=== PATIENT | female | born 1975 | race Caucasian/White ===

== ENCOUNTER → 2018-02-28 | Outpatient (CLI) | payer MEDICAID ==
--- NOTE | 2018-03-03 09:54 | MM ---
Reason for exam: screening (asymptomatic). Last mammogram was performed 1 year ago. History: Took hormonal contraceptives for 4 years. MG 3D Screening Mammo W/Cad Bilateral CC and MLO view(s) were taken. Prior study comparison: February 24, 2017, bilateral MG 3d screening mammo w/cad. February 24, 2016, bilateral MG 3d screening mammo w/cad. The breast tissue is heterogeneously dense. This may lower the sensitivity of mammography. No suspicious abnormality. No significant changes when compared with prior studies. ASSESSMENT: Negative, BI-RAD 1 RECOMMENDATION: Routine screening mammogram of both breasts in 1 year.
== END | disposition home or self-care (01) ==
LOC: RADMAMWWP 11:47
PROVIDERS: ATTEND Obstetrics & Gynecology
DX: Z12.31 Encounter for screening mammogram for malignant neoplasm of breast (principal)
CPT/HCPCS: 77063; 77067

== ENCOUNTER → 2019-03-02 | Outpatient (CLI) | payer MEDICAID ==
--- NOTE | 2019-03-03 13:50 | MM ---
Reason for exam: screening (asymptomatic). Last mammogram was performed 1 year ago. History: Took hormonal contraceptives for 4 years. Physical Findings: A clinical breast exam by your physician is recommended on an annual basis and results should be correlated with mammographic findings. MG 3D Screening Mammo W/Cad Bilateral CC and MLO view(s) were taken. Prior study comparison: February 28, 2018, bilateral MG 3d screening mammo w/cad. February 24, 2017, bilateral MG 3d screening mammo w/cad. The breast tissue is heterogeneously dense. This may lower the sensitivity of mammography. No significant changes when compared with prior studies. ASSESSMENT: Benign, BI-RAD 2 RECOMMENDATION: Routine screening mammogram of both breasts in 1 year.
== END | disposition home or self-care (01) ==
LOC: RADMAMWWP 12:33
PROVIDERS: ATTEND Obstetrics & Gynecology
DX: Z12.31 Encounter for screening mammogram for malignant neoplasm of breast (principal)
CPT/HCPCS: 77063; 77067

== ENCOUNTER → 2019-04-17 | Outpatient (CLI) | payer MEDICAID ==
[2019-04-17 17:27] LABS: T4, Free (Free Thyroxine) 1.1 ng/dL (0.80-1.80)
[2019-04-17 17:28] LABS: Estradiol 105.6 pg/mL; Follicle Stimulating Hormone 2.4 mIU/mL
== END | disposition home or self-care (01) ==
LOC: LABWHC1 10:03
PROVIDERS: ATTEND Obstetrics & Gynecology
DX: N93.8 Other specified abnormal uterine and vaginal bleeding (principal); Z13.29 Encounter for screening for other suspected endocrine disorder
CPT/HCPCS: 36415; 82670; 83001; 84439; 84443

== ENCOUNTER → 2019-04-28 | Outpatient (CLI) | payer MEDICAID ==
--- NOTE | 2019-04-28 12:57 | US ---
EXAMINATION TYPE: US pelvis complete transvag DATE OF EXAM: 04/28/2019 COMPARISON: us 09/22/2011 CLINICAL HISTORY: N93.8 dysfunctional uterine bleeding. Patient had ablation 6 years ago, no period s reuben. Bleeding now TECHNIQUE: . Transabdominal sonographic images of the pelvis were acquired. Transvaginal sonographi c images were medically necessary to better assess the following anatomy: Endometrium Date of LMP: 6 years ago EXAM MEASUREMENTS: Uterus: 9.3 x 4.0 x 4.4 cm Endometrial Stripe: 0.3 cm Right Ovary: 3.2 x 2.1 x 1.6 cm Left Ovary: 2.4 x 1.7 x 1.1 cm 1. Uterus: Anteverted Hypoechoic area measuring 4.2 x 3.1 x 4.0 cm, probable fibroid pushing into endometrium 2. Endometrium: see above. measuring normal 3. Right Ovary: wnl 4. Left Ovary: wnl Spectral, color and waveform doppler imaging shows good arterial and venous flow within the ovaries ; . 5. Bilateral Adnexa: wnl 6. Posterior cul-de-sac: wnl There is 4.2 cm large hypoechoic fibroid posterior uterine myometrium slightly bulging the margin of the uterus extending centrally to level of the endometrial stripe. This appears more isoechoic on tra nsvaginal investigation. Small moderate fluid is seen in the endometrial canal at level of the cervix . Endometrial stripe is not thickened. IMPRESSION: Interval growth in posterior intrauterine fibroid now measuring 4.2 cm in size.
== END | disposition home or self-care (01) ==
LOC: RADUSWWP 12:04
PROVIDERS: ATTEND Obstetrics & Gynecology
DX: N93.8 Other specified abnormal uterine and vaginal bleeding (principal)
CPT/HCPCS: 76830; 76856

== ENCOUNTER → 2019-12-05 | Day surgery (SDC) | payer MEDICAID ==
[2019-11-30 14:11] VITALS: BMI 29.4
[~2019-12-05] MED LIST: LACTATED RINGERS 1,000 ML IV SCH; LIDOCAINE 1% (10MG/ML) FOR IV START INTRADERMA ONE; LIDOCAINE 1% INJ 10MG/ML (20 ML MDV) ONE; PROPOFOL 10 MG/ML 20 ML VIAL IV ONE
[2019-12-05 09:22] VITALS: RESP 16; TEMP 98.2
[2019-12-05 09:39] LABS: Glucose,Whole Blood 112 mg/dL (75-99)
--- NOTE | 2019-12-05 10:27 | P.GSHP ---
History of Present Illness H&P Date: 12/05/19 Chief Complaint: GERD 44-year-old female here with complaints of GERD. Patient states she is being worked up for chronic laryngitis. She has been on antiacids for the last few months without improvement. No dysphagia. Only rare episodes of heartburn. Past Medical History Additional Past Medical History / Comment(s): recent issues with strep, tonsils, and thrush, occasional vertigo History of Any Multi-Drug Resistant Organisms: None Reported Past Surgical History: Orthopedic Surgery, Uterine Ablation Additional Past Surgical History / Comment(s): LEEP, ganglion cyst removed from hand Past Anesthesia/Blood Transfusion Reactions: No Reported Reaction Smoking Status: Former smoker - Past Family History Father Family Medical History: Cancer Additional Family Medical History / Comment(s): kidney Medications and Allergies Home Medications Medication Instructions Recorded Confirmed Type Meclizine [Antivert] 25 mg PO TID PRN #15 tab 12/27/17 12/05/19 Rx Montelukast Sodium [Singulair] 10 mg PO HS 12/27/17 12/05/19 History Cetirizine HCl [Zyrtec] 10 mg PO DAILY 11/30/19 12/05/19 History Fluticasone 150 mg PO DAILY 11/30/19 12/05/19 History Fluticasone Nasal [place] [Flonase 2 spr EA NOSTRIL DAILY 11/30/19 12/05/19 History Nasal Norman] Multivitamins, Thera [Multivitamin 1 tab PO DAILY 11/30/19 12/05/19 History (formulary)] Omeprazole 40 mg PO DAILY 11/30/19 12/05/19 History Varenicline Tartrate [Chantix 1 mg PO BID 11/30/19 12/05/19 History Continuing Pack] Allergies Allergy/AdvReac Type Severity Reaction Status Date / Time Penicillins Allergy Unknown Verified 12/05/19 09:19 Surgical - Exam Vital Signs Temp Pulse Resp BP Pulse Ox 98.2 F 93 16 149/88 97 12/05/19 09:15 12/05/19 09:15 12/05/19 09:15 12/05/19 09:15 12/05/19 09:15 Physical exam: General: Well-developed, well-nourished HEENT: Normocephalic, sclerae nonicteric Abdomen: Nontender, nondistended Extremities: No edema Neuro: Alert and oriented Results - Labs Abnormal Lab Results - Last 24 Hours (Table) 12/05/19 Range/Units 09:30 POC Glucose (mg/dL) 112 H (75-99) mg/dL Assessment and Plan (1) GERD (gastroesophageal reflux disease) Narrative/Plan: Will proceed with upper endoscopy at this time Current Visit: Yes Status: Acute Code(s): K21.9 - GASTRO-ESOPHAGEAL REFLUX DISEASE WITHOUT ESOPHAGITIS SNOMED Code(s): 056139244
--- NOTE | 2019-12-05 10:32 | P.PCN ---
Date of Procedure: 12/05/19 Procedure(s) Performed: Preoperative Dx: GERD Postoperative Dx: Mild gastritis Procedure: EGD with Bx Anesthesia: Sedation Endoscopist: Dr. Stubbs Specimens: Antrum Endoscopic Procedure: The patient was on the endoscopy table in the left decubitus position. The Olympus gastroscope was inserted into the oropharynx and passed under direct visualization to the region of the third portion of the duodenum. From that point the scope was slowly withdrawn inspecting all surfaces carefully. There were no neoplastic inflammatory or polypoid lesions throughout the duodenum. The pylorus was widely patent. The stomach was carefully inspected. There was mild gastritis present. A biopsy of the antrum took place to rule out H. pylori. Retroflexion revealed a normal hiatus. The esophagus was then carefully examined. There were no neoplastic inflammatory or polypoid lesions throughout the visualized esophagus. The patient was then taken to the recovery room in stable condition per anesthesia guidelines. Recommendations: No clinical evidence of reflux on endoscopy. No hiatal hernia seen. Await biopsy results. Continue antiacid therapy.
[2019-12-05 10:53] VITALS: BP 141/98; PULSE 77
== END ==
LOC: ORWHC2ENDO 08:58
PROVIDERS: ATTEND Surgery
DX: K29.50 Unspecified chronic gastritis without bleeding (principal); J37.0 Chronic laryngitis; R42 Dizziness and giddiness; Z86.19 Personal history of other infectious and parasitic diseases; Z98.890 Other specified postprocedural states; Z87.891 Personal history of nicotine dependence; K21.9 Gastro-esophageal reflux disease without esophagitis; Z79.899 Other long term (current) drug therapy; Z88.0 Allergy status to penicillin
CPT/HCPCS: 81025; 88305; 43239; J2001; J2704

== ENCOUNTER → 2020-01-26 | Outpatient (CLI) | payer MEDICAID | END | disposition home or self-care (01) | LOC: LABWHC1 11:08 | PROVIDERS: ATTEND Nurse Practitioner Family | DX: J30.89 Other allergic rhinitis (principal) | CPT/HCPCS: 36415 ==

== ENCOUNTER → 2020-04-05 | Outpatient (CLI) | payer MEDICAID ==
--- NOTE | 2020-04-09 08:42 | MM ---
Reason for exam: screening (asymptomatic). Last mammogram was performed 1 year and 1 month ago. History: Took hormonal contraceptives for 4 years. Physical Findings: A clinical breast exam by your physician is recommended on an annual basis and results should be correlated with mammographic findings. MG 3D Screening Mammo W/Cad Bilateral CC and MLO view(s) were taken. Prior study comparison: March 02, 2019, bilateral MG 3d screening mammo w/cad. February 28, 2018, bilateral MG 3d screening mammo w/cad. The breast tissue is heterogeneously dense. This may lower the sensitivity of mammography. There is chronic nodularity bilaterally. New nodular asymmetric density central lateral right CC view incompletely disperses on 3D. ASSESSMENT: Incomplete: need additional imaging evaluation, BI-RAD 0 RECOMMENDATION: Special view mammogram of the right breast. (3D) If lesion persists on supplemental views, image directed ultrasound is recommended. [facility] will attempt to contact patient to return for supplemental views and ultrasound if indicated.
== END | disposition home or self-care (01) ==
LOC: RADMAMWWP 15:22
PROVIDERS: ATTEND Obstetrics & Gynecology
DX: Z12.31 Encounter for screening mammogram for malignant neoplasm of breast (principal)
CPT/HCPCS: 77063; 77067

== ENCOUNTER → 2020-04-18 | Outpatient (CLI) | payer MEDICAID ==
[2020-04-18 22:32] LABS: T4, Free (Free Thyroxine) 1.1 ng/dL (0.80-1.80)
== END | disposition home or self-care (01) ==
LOC: LABWHC1 11:46
PROVIDERS: ATTEND Obstetrics & Gynecology
DX: Z13.29 Encounter for screening for other suspected endocrine disorder (principal)
CPT/HCPCS: 36415; 84439; 84443

== ENCOUNTER → 2020-04-22 | Outpatient (CLI) | payer MEDICAID ==
--- NOTE | 2020-04-22 17:43 | US ---
EXAMINATION TYPE: US pelvic complete DATE OF EXAM: 04/22/2020 COMPARISON: Previous exam 04/28/2019 CLINICAL HISTORY: D25.9 Known uterine leiomyoma. assess fibroid TECHNIQUE: TA. Transabdominal sonographic images of the pelvis were acquired. Date of LMP: ablation EXAM MEASUREMENTS: Uterus: 9.7 x 3.7 x 4.7 cm Endometrial Stripe: not seen Right Ovary: 3.2 x 2.0 x 2.0 cm Left Ovary: not seen 1. Uterus: Anteverted 3.6 x 4.3 x 3.1cm posterior fundal fibroid measured previously approximately 4.2 x 3.1 x 4 cm 2. Endometrium: unable to discern due to ablation and fibroid 3. Right Ovary: wnl 4. Left Ovary: not seen due to bowel gas 5. Bilateral Adnexa: wnl 6. Posterior cul-de-sac: wnl IMPRESSION: Hypoechoic focus described on prior report shows essentially stable to slightly decreased size in appearance
== END | disposition home or self-care (01) ==
LOC: RADUSWWP 16:13
PROVIDERS: ATTEND Obstetrics & Gynecology
DX: R93.89 Abnormal findings on diagnostic imaging of other specified body structures (principal); D25.9 Leiomyoma of uterus, unspecified
CPT/HCPCS: 76856

== ENCOUNTER → 2020-04-30 | Outpatient (CLI) | payer MEDICAID ==
--- NOTE | 2020-04-30 11:29 | MM ---
Reason for exam: additional evaluation requested from abnormal screening. Last mammogram was performed 1 month ago. History: Took hormonal contraceptives for 4 years. Physical Findings: Nurse did not find any significant physical abnormalities on exam. MG 3D Work Up W/Cad RT Spot compression CC, spot compression CCRM, and LM view(s) were taken of the right breast. Prior study comparison: April 05, 2020, bilateral MG 3d screening mammo w/cad. March 02, 2019, bilateral MG 3d screening mammo w/cad. The breast tissue is heterogeneously dense. This may lower the sensitivity of mammography. There is no discrete abnormality including area of concern. These results were verbally communicated with the patient and result sheet given to the patient on 04/30/20. ASSESSMENT: Benign, BI-RAD 2 RECOMMENDATION: Return to routine screening mammogram schedule for both breasts.
== END | disposition home or self-care (01) ==
LOC: RADMAMWWP 10:04
PROVIDERS: ATTEND Obstetrics & Gynecology
DX: R92.8 Other abnormal and inconclusive findings on diagnostic imaging of breast (principal)
CPT/HCPCS: 77061; 77065

== ENCOUNTER → 2021-05-01 | Outpatient (CLI) | payer MEDICAID ==
--- NOTE | 2021-05-05 11:43 | MM ---
Reason for exam: screening (asymptomatic). Last mammogram was performed 1 year ago. History: Took hormonal contraceptives for 4 years. Physical Findings: A clinical breast exam by your physician is recommended on an annual basis and results should be correlated with mammographic findings. MG 3D Screening Mammo W/Cad Bilateral CC and MLO view(s) were taken. Prior study comparison: April 30, 2020, right breast MG 3d work up w/cad RT. April 05, 2020, bilateral MG 3d screening mammo w/cad. The breast tissue is heterogeneously dense. This may lower the sensitivity of mammography. There is chronic nodularity bilaterally. No significant changes when compared with prior studies. ASSESSMENT: Benign, BI-RAD 2 RECOMMENDATION: Routine screening mammogram of both breasts in 1 year.
== END | disposition home or self-care (01) ==
LOC: RADMAMWWP 10:42
PROVIDERS: ATTEND Obstetrics & Gynecology
DX: Z12.31 Encounter for screening mammogram for malignant neoplasm of breast (principal)
CPT/HCPCS: 77063; 77067

== ENCOUNTER 2022-03-03 09:10 | Day surgery (SDC) | payer MEDICAID ==
[~2022-03-03 09:10] MED LIST changes: -LIDOCAINE 1% (10MG/ML) FOR IV START INTRADERMA ONE; +LIDOCAINE 1% (10MG/ML) FOR IV START INTRADERMA PRN; -LIDOCAINE 1% INJ 10MG/ML (20 ML MDV) ONE; -PROPOFOL 10 MG/ML 20 ML VIAL IV ONE
[2022-03-03] MEDS ORDERED: LACTATED RINGERS 1,000 ML IV ONE (09:50)
[2022-03-03 10:02] VITALS: RESP 16; TEMP 97.2
[2022-03-03] MEDS ORDERED: PROPOFOL 10 MG/ML 20 ML VIAL IV ONE (10:29)
--- NOTE | 2022-03-03 10:32 | P.GSHP ---
History of Present Illness H&P Date: 03/03/22 Chief Complaint: Colon cancer screening 47-year-old female here today for colonoscopy. She has not had 1 previously. No bowel complaints. No family history of colon cancer. Past Medical History Past Medical History: GERD/Reflux Additional Past Medical History / Comment(s): seasonal allergies History of Any Multi-Drug Resistant Organisms: None Reported Past Surgical History: Orthopedic Surgery, Uterine Ablation Additional Past Surgical History / Comment(s): LEEP, ganglion cyst removed from hand, EGD Past Anesthesia/Blood Transfusion Reactions: No Reported Reaction Smoking Status: Current every day smoker - Past Family History Father Family Medical History: Cancer Additional Family Medical History / Comment(s): kidney Medications and Allergies Home Medications Medication Instructions Recorded Confirmed Type Montelukast Sodium [Singulair] 10 mg PO HS 12/27/17 03/03/22 History Cetirizine HCl [Zyrtec] 10 mg PO DAILY 11/30/19 03/03/22 History Fluticasone Nasal [place] [Flonase 2 spr EA NOSTRIL DAILY PRN 11/30/19 03/03/22 History Nasal [place]onda] Multivitamins, Thera [Multivitamin 1 tab PO DAILY 11/30/19 03/03/22 History (formulary)] Omeprazole 40 mg PO DAILY PRN 11/30/19 03/03/22 History Azelastine HCl [Astepro] 1 spray NASAL BID PRN 02/26/22 03/03/22 History Citalopram Hydrobromide 20 mg PO HS 02/26/22 03/03/22 History [Citalopram HBr] Allergies Allergy/AdvReac Type Severity Reaction Status Date / Time Penicillins Allergy family hx. Verified 03/03/22 09:44 of severe allergy Surgical - Exam Vital Signs Temp Pulse Resp BP Pulse Ox 97.2 F L 78 16 152/91 96 03/03/22 09:40 03/03/22 09:40 03/03/22 09:40 03/03/22 09:40 03/03/22 09:40 Physical exam: General: Well-developed, well-nourished HEENT: Normocephalic, sclerae nonicteric Abdomen: Nontender, nondistended Extremities: No edema Neuro: Alert and oriented Assessment and Plan (1) Colon cancer screening Narrative/Plan: Will proceed with colonoscopy at this time. Current Visit: Yes Status: Acute Code(s): Z12.11 - ENCOUNTER FOR SCREENING FOR MALIGNANT NEOPLASM OF COLON SNOMED Code(s): 500689470
--- NOTE | 2022-03-03 10:44 | P.PCN ---
Date of Procedure: 03/03/22 Procedure(s) Performed: PREOPERATIVE DIAGNOSIS: Colon cancer screening POSTOPERATIVE DIAGNOSIS: Normal exam PROCEDURE: Colonoscopy ANESTHESIA: MAC SURGEON: Itz Stubbs M.D. SPECIMENS: None ENDOSCOPIC PROCEDURE: The patient was placed on the endoscopy table in the left decubitus position. The Olympus colonoscope was inserted into the anus and passed under direct visualization to the base of the cecum. The appendiceal orifice was visualized. From that point the scope was slowly withdrawn inspecti ng all surfaces carefully. There were no neoplastic inflammatory or polypoid lesions throughout the cecum, ascending, transverse, descending, sigmoid and rectum. There was no visible diverticulosis noted. Digital rectal examination was normal. The patient was taken to the recovery room in stable condition per anesthesia guidelines. RECOMMENDATIONS: Resume diet. Repeat colonoscopy 10 years.
[2022-03-03 11:13] VITALS: BP 146/96; PULSE 78
== END 2022-03-03 11:22 | disposition home or self-care (01) ==
LOC: ORWHC2ENDO 09:10
PROVIDERS: ATTEND Surgery
DX: Z12.11 Encounter for screening for malignant neoplasm of colon (principal); K21.9 Gastro-esophageal reflux disease without esophagitis; F17.200 Nicotine dependence, unspecified, uncomplicated; R42 Dizziness and giddiness; Z80.51 Family history of malignant neoplasm of kidney; Z79.899 Other long term (current) drug therapy; Z88.0 Allergy status to penicillin; Z80.0 Family history of malignant neoplasm of digestive organs; Z98.51 Tubal ligation status
CPT/HCPCS: 81025; 45378; J2704

== ENCOUNTER → 2022-05-04 | Outpatient (CLI) | payer MEDICAID ==
--- NOTE | 2022-05-04 15:27 | MM ---
Reason for Exam: Screening (asymptomatic). Last mammogram was performed 1 year(s) and 1 month(s) ago. Patient History: Menarche at age 12. First Full-Term at age 18. Patient used Hormonal Contraceptives for 4 years. Risk Values: Jody 5 year model risk: 0.6%. NCI Lifetime model risk: 6.8%. Prior Study Comparison: 04/05/2020 Bilateral Screening Mammogram, [facility]. 04/30/2020 Right Diagnostic Mammogram, [facility]. 05/01/2021 Bilateral Screening Mammogram, [facility]. Tissue Density: The breast tissue is heterogeneously dense. This may lower the sensitivity of mammography. Findings: Analyzed By CAD. Stable 5 mm rounded circumscribed mass in the anterior right breast from several prior mammograms. There is no suspicious group of microcalcifications or new suspicious mass in either breast. Overall Assessment: Negative, BI-RAD 1 Management: Screening Mammogram of both breasts in 1 year. A clinical breast exam by your physician is recommended on an annual basis and results should be correlated with mammographic findings. Electronically signed and approved by: Eulalio Pineda M.D.
== END | disposition home or self-care (01) ==
LOC: RADMAMWWP 10:37
PROVIDERS: ATTEND Obstetrics & Gynecology
DX: Z12.31 Encounter for screening mammogram for malignant neoplasm of breast (principal)
CPT/HCPCS: 77063; 77067

== ENCOUNTER → 2023-02-03 | Outpatient (CLI) | payer MEDICAID ==
--- NOTE | 2023-02-03 12:08 | MR ---
EXAMINATION TYPE: MR lumbar spine wo con DATE OF EXAM: 02/03/2023 COMPARISON: Lumbosacral spine radiograph 06/29/2014 HISTORY: Back (Lower Sacral) Pain that radiates in hips, mostly left side x8 months TECHNIQUE: Multiplanar, multisequence images of the lumbar spine were acquired without IV contrast. FINDINGS: Lumbar segments are intact. No paraspinal masses are identified. Conus medullaris has a normal appe arance. Diffusely heterogenous bone marrow signal. T11-T12: Small left central disc protrusion superimposed upon a broad-based disc bulge with mild effa cement of anterior thecal sac. The neuroforamina are patent bilaterally. T12-L1: Broad-based disc bulge with mild effacement of the anterior thecal sac. The neuroforamina are patent bilaterally. L1-L2: No herniation, protrusion or disc bulging. No canal stenosis is present. Foramina are patent bilaterally. L2-L3: No herniation, protrusion or disc bulging. No canal stenosis is present. Foramina are patent bilaterally. L3-L4: Broad-based disc bulge without significant effacement of the anterior thecal sac. Bilateral fa cet arthropathy. No significant neural foraminal stenosis. L4-L5: Broad-based disc bulge with ligamentum flavum buckling and bilateral facet arthropathy contrib zulma to mild central canal stenosis. Mild bilateral neural foraminal stenosis. L5-S1: Broad-based disc bulge with bilateral facet arthropathy contributes to mild central canal sten osis. The neural foramina are patent bilaterally. Fibrotic changes of the uterus suspected with lobulated appearance and T2 hyperintense foci. IMPRESSION: 1. Small T11-T12 disc herniation superimposed upon a broad-based disc bulge with mild central canal s tenosis. 2. Multilevel degenerative disc disease and facet arthropathy. This is most pronounced at T12-L1 and L4-L5.
== END | disposition home or self-care (01) ==
LOC: RADMRIMAIN 10:13
PROVIDERS: ATTEND Physical Medicine & Rehabilitation
DX: M51.16 Intervertebral disc disorders with radiculopathy, lumbar region (principal); M47.26 Other spondylosis with radiculopathy, lumbar region; M51.14 Intervertebral disc disorders with radiculopathy, thoracic region; M48.07 Spinal stenosis, lumbosacral region; M99.73 Connective tissue and disc stenosis of intervertebral foramina of lumbar region; M43.16 Spondylolisthesis, lumbar region
CPT/HCPCS: 72148

== ENCOUNTER → 2023-05-13 | Outpatient (CLI) | payer MEDICAID ==
--- NOTE | 2023-05-15 15:54 | MM ---
Reason for Exam: Screening (asymptomatic). Last screening mammogram was performed 12 month(s) ago. Patient History: Menarche at age 12. First Full-Term at age 18. Patient used Hormonal Contraceptives for 4 years. Risk Values: Jody 5 year model risk: 0.7%. NCI Lifetime model risk: 6.7%. Prior Study Comparison: 04/30/2020 Right Diagnostic Mammogram, [facility]. 05/01/2021 Bilateral Screening Mammogram, [facility]. 05/04/2022 Bilateral MG 3D screening mammo w/cad, [facility]. Tissue Density: The breast tissue is heterogeneously dense. This may lower the sensitivity of mammography. Findings: Analyzed By CAD. The pattern is symmetrical and stable. No significant interval changes. Chronic nodularity is within the right breast. No suspicious groups of microcalcifications, spiculated or lobular masses, architectural distortion or other secondary signs of malignancy are mammographically apparent. Overall Assessment: Benign, BI-RAD 2 Management: Screening Mammogram of both breasts in 1 year. A negative mammogram report should not preclude additional follow up of suspicious palpable abnormalities. Patient should continue monthly self breast exam. A clinical breast exam by your physician is recommended on an annual basis and results should be correlated with mammographic findings. Electronically signed and approved by: Brian Estevez D.O. Radiologis
== END | disposition home or self-care (01) ==
LOC: RADMAMWWP 09:29
PROVIDERS: ATTEND Obstetrics & Gynecology
DX: Z12.31 Encounter for screening mammogram for malignant neoplasm of breast (principal)
CPT/HCPCS: 77063; 77067

== ENCOUNTER → 2024-04-12 | Outpatient (CLI) | payer MEDICAID ==
--- NOTE | 2024-04-12 07:35 | MM ---
Reason for Exam: Clinical finding. Last screening mammogram was performed 11 month(s) ago. Indicated Problems: Lump or thickening of the left side for 4 Year(s). Patient History: Menarche at age 12. First Full-Term at age 18. Patient used Hormonal Contraceptives for 4 years. Risk Values: Jody 5 year model risk: 0.7%. NCI Lifetime model risk: 6.6%. Prior Study Comparison: 05/12/2010 Bilateral Screening Mammogram, [facility]. 07/03/2013 Bilateral Diagnostic Mammogram, [facility]. 07/03/2013 Right Diagnostic Ultrasound, [facility]. 01/08/2014 Right Diagnostic Ultrasound, [facility]. 02/20/2015 Bilateral Screening Mammogram, [facility]. 02/24/2016 Bilateral Screening Mammogram, [facility]. 02/24/2017 Bilateral Screening Mammogram, [facility]. 02/28/2018 Bilateral Screening Mammogram, [facility]. 03/02/2019 Bilateral Screening Mammogram, [facility]. 04/05/2020 Bilateral Screening Mammogram, [facility]. 04/30/2020 Right Diagnostic Mammogram, [facility]. 05/01/2021 Bilateral Screening Mammogram, [facility]. 05/04/2022 Bilateral MG 3D screening mammo w/cad, [facility]. 05/13/2023 Bilateral MG 3D screening mammo w/cad, [facility]. Tissue Density: There are scattered areas of fibroglandular density. Findings: Analyzed By CAD. The pattern is symmetrical. No significant interval change. No suspicious mammographic abnormality at the palpable marker anterior left breast. Benign calcifications in the outer mid left breast. No suspicious groups of microcalcifications, spiculated or lobular masses, architectural distortion or other secondary signs of malignancy are mammographically apparent. Overall Assessment: Incomplete: need additional imaging evaluation, BI-RAD 0 Management: Diagnostic Breast Ultrasound of the left breast. A negative mammogram report should not preclude additional follow up of suspicious palpable abnormalities. Patient should continue monthly self breast exam. A clinical breast exam by your physician is recommended on an annual basis and results should be correlated with mammographic findings. Note on Jody scores and lifetime risk: 1. A Jody score greater than 3% is considered moderate risk. If this is the case, consider specialist referral to assess eligibility for a risk reducing agent. 2. If overall lifetime risk for the development of breast cancer is 20% or higher, the patient may qualify for future screening with alternating mammogram and breast MRI. [facility], , 04/12/2024 7:31 AM. Electronically signed and approved by: Brian Estevez D.O. Radiologis
--- NOTE | 2024-04-12 07:59 | USB ---
Reason for Exam: Clinical finding. Patient History: Menarche at age 12. First Full-Term at age 18. Patient used Hormonal Contraceptives for 4 years. Risk Values: Jody 5 year model risk: 0.7%. NCI Lifetime model risk: 6.6%. Technique: Method: Targeted. Prior Study Comparison: 05/01/2021 Bilateral Screening Mammogram, [facility]. 05/04/2022 Bilateral MG 3D screening mammo w/cad, [facility]. 05/13/2023 Bilateral MG 3D screening mammo w/cad, [facility]. Findings: The area of palpable concern of the left breast, the axilla of the left breast and the retroareolar of the left breast were scanned. No discrete solid or cystic masses are identified. There is a vague isoechoic area containing the soft tissues. Short-term follow-up can be performed. Earlier diagnostic workup can be performed for changing clinical findings. Overall Assessment: Probably benign, BI-RAD 3 Management: Diagnostic Breast Ultrasound of the left breast in 3 months. A clinical breast exam by your physician is recommended on an annual basis and results should be correlated with mammographic findings. This exam should not preclude additional follow-up of suspicious palpable abnormalities. Results were given to the patient verbally at the time of exam. [facility], , 04/12/2024 7:47 AM. Electronically signed and approved by: Brian Estevez D.O. Radiologis
== END | disposition home or self-care (01) ==
LOC: RADMAMWWP 06:55
PROVIDERS: ATTEND Obstetrics & Gynecology
DX: N63.20 Unspecified lump in the left breast, unspecified quadrant (principal); R92.323 Mammographic fibroglandular density, bilateral breasts
CPT/HCPCS: 77062; 77066

== ENCOUNTER 2024-06-26 23:34 | Emergency (ER) | payer MEDICAID ==
[2024-06-26 23:40] VITALS: BP 135/92; PULSE 100; RESP 18; TEMP 97.8
--- NOTE | 2024-06-26 23:56 | ED ---
General Adult HPI - General Chief complaint: Wound/Laceration Stated complaint: Cat Scratch on Lip Time Seen by Provider: 06/26/24 23:44 Source: patient Mode of arrival: ambulatory Limitations: no limitations - History of Present Illness Initial comments: 49-year-old female presenting with chief complaint of cat scratch. States that tonight her pet cat scratched her face. She is a small scratch on her nose and on her upper lip. Bleeding is controlled. This is quite superficial. She does not know when her last tetanus shot was. - Related Data Home Medications Medication Instructions Recorded Confirmed Montelukast Sodium [Singulair] 10 mg PO HS 12/27/17 03/03/22 Cetirizine HCl [Zyrtec] 10 mg PO DAILY 11/30/19 03/03/22 Fluticasone Nasal [place] [Flonase 2 spr EA NOSTRIL DAILY PRN 11/30/19 03/03/22 Nasal [place]] Multivitamins, Thera [Multivitamin 1 tab PO DAILY 11/30/19 03/03/22 (formulary)] Omeprazole 40 mg PO DAILY PRN 11/30/19 03/03/22 Azelastine HCl [Astepro] 1 spray NASAL BID PRN 02/26/22 03/03/22 Citalopram Hydrobromide 20 mg PO HS 02/26/22 03/03/22 [Citalopram HBr] Previous Rx's Medication Instructions Recorded Azithromycin [Zithromax Z Pack] 1 tab PO DIRECTED #6 tab 06/26/24 Allergies Allergy/AdvReac Type Severity Reaction Status Date / Time Penicillins Allergy family hx. Verified 06/26/24 23:36 of severe allergy Review of Systems ROS Statement: Those systems with pertinent positive or pertinent negative responses have been documented in the HPI. ROS Other: All systems not noted in ROS Statement are negative. Past Medical History Past Medical History: GERD/Reflux Additional Past Medical History / Comment(s): recent issues with strep, tonsils, and thrush, occasional vertigo History of Any Multi-Drug Resistant Organisms: None Reported Past Surgical History: Orthopedic Surgery, Uterine Ablation Additional Past Surgical History / Comment(s): LEEP, ganglion cyst removed from hand Past Anesthesia/Blood Transfusion Reactions: No Reported Reaction Past Psychological History: Anxiety Smoking Status: Current every day smoker Past Alcohol Use History: Daily Past Drug Use History: None Reported - Past Family History Father Family Medical History: Cancer Additional Family Medical History / Comment(s): kidney General Exam Limitations: no limitations General appearance: alert, in no apparent distress Head exam: Present: normocephalic Expanded Head exam: Present: laceration (Small superficial laceration to the upper lip and nose from cat scratch) Eye exam: Present: normal appearance, EOMI. Absent: periorbital swelling Neck exam: Present: normal inspection. Absent: meningismus Respiratory exam: Absent: respiratory distress Cardiovascular Exam: Present: regular rate Neurological exam: Present: alert, oriented X3 Psychiatric exam: Present: normal affect, normal mood Course Vital Signs 06/26/24 23:36 Temperature 97.8 F Pulse Rate 100 Respiratory 18 Rate Blood Pressure 135/92 O2 Sat by Pulse 98 Oximetry Medical Decision Making - Medical Decision Making Was pt. sent in by a medical professional or institution (, PA, AUTOMOTIVE DRIVABILITY TECHNICIAN, urgent care, hospital, or long-term...) When possible be specific @ -No Did you speak to anyone other than the patient for history (EMS, parent, family, police, friend...)? What history was obtained from this source @ -No Did you review nursing and triage notes (agree or disagree)? Why? @ -I reviewed and agree with nursing and triage notes Were old charts reviewed (outside hosp., previous admission, EMS record, old EKG, old radiological studies, urgent care reports/EKG's, long-term records)? Report findings @ -No old charts were reviewed Differential Diagnosis (chest pain, altered mental status, abdominal pain women, abdominal pain men, vaginal bleeding, weakness, fever, dyspnea, syncope, headache, dizziness, GI bleed, back pain, seizure, CVA, palpatations, mental health, musculoskeletal)? @ -Differential includes EKG interpreted by me (3pts min.). @ -As above X-rays interpreted by me (1pt min.). @ -None done CT interpreted by me (1pt min.). @ -None done U/S interpreted by me (1pt. min.). @ -None done What testing was considered but not performed or refused? (CT, X-rays, U/S, labs)? Why? @ -None What meds were considered but not given or refused? Why? @ -None Did you discuss the management of the patient with other professionals (professionals i.e. , PA, AUTOMOTIVE DRIVABILITY TECHNICIAN, lab, RT, psych nurse, clinical social worker, landing gear mechanic, teacher, security officer, corrections caseworker)? Give summary @ -No Was smoking cessation discussed for >3mins.? @ -No Was critical care preformed (if so, how long)? @ -No Were there social determinants of health that impacted care today? How? (Homelessness, low income, unemployed, alcoholism, drug addiction, transportation, low edu. Level, literacy, decrease access to med. care, correction, rehab)? @ -No Was there de-escalation of care discussed even if they declined (Discuss DNR or withdrawal of care, Hospice)? DNR status @ -No What co-morbidities impacted this encounter? (DM, HTN, Smoking, COPD, CAD, Cancer, CVA, ARF, Chemo, Hep., AIDS, mental health diagnosis, sleep apnea, morbid obesity)? @ -None Was patient admitted / discharged? Hospital course, mention meds given and route, prescriptions, significant lab abnormalities, going to OR and other pertinent info. @ -49-year-old female presenting with chief complaint of cat scratch to the upper lip and nose. These scratches are quite superficial. They are irrigated using normal saline. Tetanus is updated. Patient is started on antibiotics. Educated on wound care and signs of infection. Follow-up with PCP. Report back to ER with any new or worsening symptoms. Discussed return parameters and answered all questions. Patient conveyed verbal understanding and agreed to the plan. I discussed this case in detail with my attending Dr. Desai Undiagnosed new problem with uncertain prognosis? @ -No Drug Therapy requiring intensive monitoring for toxicity (Heparin, Nitro, Insulin, Cardizem)? @ -No Were any procedures done? @ -No Diagnosis/symptom? @ -Cat scratch Acute, or Chronic, or Acute on Chronic? @ -Acute Uncomplicated (without systemic symptoms) or Complicated (systemic symptoms)? @ -Uncomplicated Side effects of treatment? @ -No Exacerbation, Progression, or Severe Exacerbation? @ -No Poses a threat to life or bodily function? How? (Chest pain, [place], [place], pneumonia, PE, COPD, DKA, ARF, appy, cholecystitis, CVA, Diverticulitis, Homicidal, Suicidal, threat to staff... and all critical care pts) @ -Unlikely Disposition Clinical Impression: Cat scratch Disposition: HOME SELF-CARE Condition: Good Instructions (If sedation given, give patient instructions): Cat Scratch Disease (ED) Additional Instructions: Follow-up with PCP. Report back to ER with any new or worsening symptoms. Keep the wound clean. Wash daily with soap and water. Monitor for signs of infection, including but not limited to redness, swelling, warmth, tenderness, discharge, fevers. Take medication as prescribed. Prescriptions: Azithromycin [Zithromax Z Pack] 1 tab PO DIRECTED #6 tab Is patient prescribed a controlled substance at d/c from ED?: No Referrals: Darrin Nicole MD [Primary Care Provider] - 1-2 days Time of Disposition: 23:56
[2024-06-27] MEDS: DIPH,PERTUS(ACELL)TETVAC-LF 0.5 ML VIAL IM ONE (00:05)
== END 2024-06-27 00:01 | disposition home or self-care (01) ==
LOC: EC 23:34
DX: S01.511A Laceration without foreign body of lip, initial encounter (principal); F17.200 Nicotine dependence, unspecified, uncomplicated; Z88.0 Allergy status to penicillin; Z23 Encounter for immunization; W55.03XA Scratched by cat, initial encounter
CPT/HCPCS: 90471; 90715; 99282

== ENCOUNTER → 2024-07-12 | Outpatient (CLI) | payer MEDICAID ==
--- NOTE | 2024-07-12 09:41 | USB ---
Reason for Exam: Follow-up at short interval from prior study. Patient History: Menarche at age 12. First Full-Term at age 18. Patient used Hormonal Contraceptives for 4 years. Risk Values: Jody 5 year model risk: 0.7%. NCI Lifetime model risk: 6.6%. Prior Study Comparison: 05/04/2022 Bilateral MG 3D screening mammo w/cad, [facility]. 05/13/2023 Bilateral MG 3D screening mammo w/cad, [facility]. 04/12/2024 Bilateral MG 3D diag mammo w/cad RAJESH, [facility]. 04/12/2024 Left US breast limited , [facility]. Findings: The axilla of the left breast and the retroareolar of the left breast were scanned. No solid or cystic masses are identified.. Overall Assessment: Negative, BI-RAD 1 Management: Screening Mammogram of both breasts in 9 months. A clinical breast exam by your physician is recommended on an annual basis and results should be correlated with mammographic findings. This exam should not preclude additional follow-up of suspicious palpable abnormalities. Results were given to the patient verbally at the time of exam. [facility], , 07/12/2024 9:38 AM. Electronically signed and approved by: José Miguel Arcos M.D. Radiolog[facility]
== END | disposition home or self-care (01) ==
LOC: RADUSWWP 09:17
PROVIDERS: ATTEND Surgery
DX: R92.8 Other abnormal and inconclusive findings on diagnostic imaging of breast (principal); Z92.0 Personal history of contraception